=== PATIENT | female | born 1985 | race American Indian/Alaskan Native ===

== ENCOUNTER 2016-07-23 07:27 | Emergency (ER) | payer SELFPAY ==
[2016-07-23 07:39] VITALS: BP 123/98
[2016-07-23] MEDS ORDERED: MOTRIN PO ONE (08:15)
[2016-07-23] MEDS ORDERED: NORCO 5/325 PO ONE (08:15)
[2016-07-23] MEDS ORDERED: ZOFRAN ODT PO ONE (08:15)
--- NOTE | 2016-07-23 08:56 | Emergency Department Report ---
ED Extremity Problem HPI - General Chief complaint: Extremity Injury, Lower Stated complaint: KNEE INJURY FROM FALL Time Seen by Provider: 07/23/16 08:04 Source: patient Mode of arrival: Ambulatory Limitations: No Limitations - History of Present Illness Initial comments: PT c/o R knee injury yesterday at 1600. PT states she has not taken anything for the pain. PT states she can not more her R knee. PT states she injured her knee when she was skating and fell. PT states she did not land on her knee but she twisted her leg. PT states she is having difficulty ambulating. pt states her lmp was 1 week ago MD Complaint: joint swelling Onset/Timin -: Sudden, days(s) Location: right, knee History of Same: No Severity scale (0 -10): 10 Quality: aching, constant Consistency: constant Improves with: rest Worsens with: weight bearing, walking, palpation Associated Symptoms: denies other symptoms, other (denies augustine hand/ wrist injuries ) - Related Data Previous Rx's Medication Instructions Recorded Last Taken Type Acetaminophen/Codeine [Tylenol #3] 1 tab PO Q6H PRN #12 tab 07/23/16 Unknown Rx Ibuprofen [Motrin] 600 mg PO Q8H PRN #20 tablet 07/23/16 Unknown Rx Allergies Allergy/AdvReac Type Severity Reaction Status Date / Time No Known Allergies Allergy Unverified 07/23/16 08:27 ED Review of Systems ROS: Stated complaint: KNEE INJURY FROM FALL Other details as noted in HPI Comment: All other systems reviewed and negative Cardiovascular: denies: chest pain Gastrointestinal: denies: abdominal pain Genitourinary: denies: abnormal menses Musculoskeletal: as per HPI, joint swelling. denies: back pain Skin: denies: change in color Neurological: abnormal gait (due to R leg pain ). denies: paresthesias ED Past Medical Hx - Past Medical History Previous Medical History?: Yes Hx Asthma: Yes - Surgical History Past Surgical History?: Yes Additional Surgical History: x4 - Social History Smoking Status: Current Every Day Smoker Substance Use Type: None - Medications Home Medications: Home Medications Medication Instructions Recorded Confirmed Last Taken Type Acetaminophen/Codeine [Tylenol #3] 1 tab PO Q6H PRN #12 tab 07/23/16 Unknown Rx Ibuprofen [Motrin] 600 mg PO Q8H PRN #20 tablet 07/23/16 Unknown Rx ED Physical Exam - General Limitations: No Limitations General appearance: alert, in no apparent distress - Head Head exam: Present: atraumatic, normocephalic - Eye Eye exam: Present: normal appearance. Absent: conjunctival injection - ENT ENT exam: Present: normal exam, normal external ear exam - Neck Neck exam: Present: normal inspection, full ROM. Absent: tenderness - Respiratory Respiratory exam: Present: normal lung sounds bilaterally. Absent: respiratory distress, chest wall tenderness - Cardiovascular Cardiovascular Exam: Present: regular rate, normal rhythm - GI/Abdominal GI/Abdominal exam: Present: soft. Absent: tenderness - Extremities Exam Extremities exam: Present: tenderness, joint swelling. Absent: pedal edema, calf tenderness - Expanded Lower Extremity Exam Right Hip exam: Present: normal inspection, tenderness, internal rotation. Absent: swelling, deformity Upper Leg exam: Present: normal inspection. Absent: tenderness Knee exam: Present: tenderness, swelling. Absent: full ROM, ecchymosis, deformity, dislocation Lower Leg exam: Present: tenderness (to R distal and proximal tib/fib ), swelling. Absent: ecchymosis Ankle exam: Present: normal inspection, full ROM, tenderness (difuse). Absent: swelling, ecchymosis Neuro vascular tendon exam: Absent: pulse deficit - Back Exam Back exam: Present: normal inspection, full ROM, tenderness. Absent: CVA tenderness (R), CVA tenderness (L) - Neurological Exam Neurological exam: Present: alert, oriented X3 - Psychiatric Psychiatric exam: Present: normal affect, normal mood - Skin Skin exam: Present: warm, dry ED Course Vital Signs 07/23/16 07:34 Temperature 98.4 F Pulse Rate 73 Respiratory 18 Rate Blood Pressure 123/98 O2 Sat by Pulse 99 Oximetry - Reevaluation(s) Reevaluation #1: 07/23/16 10:07 PT states the pain medication has helped ease her pain. PT is aware of XR findings. PT is aware she will need to follow up with Ortho. PT has no questions at this time. Reevaluation #2: 07/23/16 10:40 PT placed in R knee immobilzer by nursing staff, pt NVI - Pulse Oximetry Interpretation Digit-Finger Initial Pulse Oximetry Readin Actions Taken: none ED Medical Decision Making - Radiology Data Radiology results: report reviewed R hip- NAP R tib/fib- distal soft tissue swelling, no fx R knee- no fx, Joint effusion - Differential Diagnosis fracture, strain, contusion Critical Care Time: No Critical care attestation.: If time is entered above; I have spent that time in minutes in the direct care of this critically ill patient, excluding procedure time. ED Disposition Clinical Impression: Effusion, right knee, Right hip pain, Right leg pain Disposition: DISCHARGED TO HOME OR SELFCARE Is pt being admited?: No Does the pt Need Aspirin: No Condition: Stable Instructions: Ankle Sprain (ED), Crutch Instructions (ED), Knee Effusion (ED), RICE Therapy (ED), Knee Immobilizer (ED) Additional Instructions: No driving or ETOH After taking Tylenol #3 Prescriptions: Acetaminophen/Codeine [Tylenol #3] 1 tab PO Q6H PRN #12 tab PRN Reason: Pain , Severe (7-10) Ibuprofen [Motrin] 600 mg PO Q8H PRN #20 tablet PRN Reason: Pain Referrals: PRIMARY CARE, [Primary Care Provider] - 3-5 Days ANIYAH JORDAN MD [Staff Physician] - 3-5 Days DANA SERNA MD [Staff Physician] - 3-5 Days [facility] [Outside] - 3-5 Days [facility] [Outside] - 3-5 Days Forms: Work/School Release Form(ED) Time of Disposition: 10:12
--- NOTE | 2016-07-23 09:38 | XRay Report ---
RIGHT TIBIA/FIBULA: History: Pain, injury AP and lateral views of the right tibia/fibula demonstrate normal mineralization and contours for this patient's age. No fracture or joint pathology is appreciated. There is mild distal soft tissue swelling near the ankle. IMPRESSION: Mild soft tissue swelling.
--- NOTE | 2016-07-23 09:39 | XRay Report ---
RIGHT KNEE, 3 views: History: Right knee pain, injury. The bony architecture is intact without evidence of fracture or dislocation. A moderate joint effusion is suspected on the lateral image. IMPRESSION: Joint effusion. No bony abnormality detected. If internal derangement is suspected, MRI right knee without contrast is recommended.
--- NOTE | 2016-07-23 09:39 | XRay Report ---
RIGHT HIP, 2 views: History: Injury, right hip pain. The bony architecture is intact without evidence of fracture or dislocation. No significant soft tissue abnormality is seen. IMPRESSION: Normal right hip.
== END 2016-07-23 10:38 | disposition home or self-care (01) ==
LOC: ED 07:27
DX: M25.461 Effusion, right knee (principal); M25.551 Pain in right hip; M79.604 Pain in right leg; J45.909 Unspecified asthma, uncomplicated; F17.200 Nicotine dependence, unspecified, uncomplicated
CPT/HCPCS: Q0162